=== PATIENT | male | born 1975 | race Caucasian/White ===

== ENCOUNTER → 2021-02-20 19:16 | Outpatient (CLI) | payer MEDICAID, SELFPAY | PROVIDERS: Visit Provider Nurse Practitioner Family | DX: U07.1 COVID-19 (principal) | CPT/HCPCS: C9803; U0003; U0005 ==

== ENCOUNTER → 2021-04-13 15:00 | Outpatient (CLI) | payer BC, MEDICAID, SELFPAY ==
--- NOTE | 2021-04-13 15:07 | XR_ITS ---
PROCEDURE: XR SHOULDER LT MIN 2V CLINICAL INDICATION: LT ANTERIOR SHOULDER PAIN COMPARISON: No exams were available for comparison FINDINGS: No fracture or dislocation. No lytic or blastic change. There is normal mineralization. Minimal hypertrophic change along the inferior aspect of the glenoid which may indicate mild osteoarthritic change. Other findings:None. IMPRESSION: Minimal osteoarthritic change otherwise negative Dictated by: Vinny Cota MD 04/13/2021 15:51 Vinny Cota MD in [place] 04/13/2021 15:51
--- NOTE | 2021-04-13 15:07 | XR_ITS ---
PROCEDURE: XR FEMUR LT 2V CLINICAL INDICATION: LT THIGH PAIN COMPARISON: No exams were available for comparison FINDINGS: No fracture or dislocation. No lytic or blastic change. There is normal mineralization. Mild osteoarthritic changes are present of the hip and knee. No fracture or dislocation. No lytic or blastic change. Other findings:None. 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
== END ==
PROVIDERS: PCP Family Medicine; Visit Provider Family Medicine
DX: M25.512 Pain in left shoulder (principal); M79.652 Pain in left thigh
CPT/HCPCS: 73030; 73552

== ENCOUNTER → 2021-06-30 16:09 | Outpatient (CLI) | payer BC, SELFPAY ==
--- NOTE | 2021-06-30 16:16 | XR_ITS ---
PROCEDURE INFORMATION: Exam: XR Cervical Spine Exam date and time: 06/30/2021 4:16 PM Age: 46 years old Clinical indication: Pain; Cervicalgia; Additional info: Left arm weekness, cervical disc disorder at c4-c5 level TECHNIQUE: Imaging protocol: XR of the cervical spine. Views: 4 or 5 views. COMPARISON: No relevant prior studies available. FINDINGS: Bones/joints: Reversal of normal cervical lordotic curvature which is likely on the basis of patient head position at the time of imaging. There is anterior osteophyte formation noted at C2-C3, C5-C6, and C6-C7. Mild intervertebral disc space narrowing at C5-C6 and C6-C7. Mild hypertrophic changes and narrowing between the anterior arch of C1 and the dens of C2. The spinolaminar line is intact. Exit foramina appear patent throughout the cervical spine. Soft tissues: Unremarkable. There is benign calcification of nuchal ligament posterior to C5 and C6. IMPRESSION: Osteoarthritis of the cervical spine. No evidence of acute fracture or malalignment.
== END ==
PROVIDERS: PCP Family Medicine; Visit Provider Family Medicine
DX: M50.021 Cervical disc disorder at C4-C5 level with myelopathy (principal); R29.898 Other symptoms and signs involving the musculoskeletal system
CPT/HCPCS: 72050

== ENCOUNTER → 2021-07-06 14:44 | Outpatient (CLI) | payer BC, SELFPAY ==
--- NOTE | 2021-07-06 14:45 | MR_ITS ---
FINAL REPORT CLINICAL HISTORY: LEFT ARM WEAKNESS, CERVICAL DISC DISORDER. left shoulder and neck pain. numbness in fingers. symptoms x9days. no injury. FINDINGS: Multiplanar MR imaging of the cervical spine was performed without contrast. On the sagittal T2-weighted images, disc degeneration is seen throughout. There is no evidence of fracture. There is straightening of the normal cervical curvature which could be due to positioning or muscle spasm. The vertebral alignment is normal. The cervical spinal cord has an unremarkable appearance without evidence of mass, edema or syrinx. The cervicomedullary junction is normal. C2-3: There is a small right paracentral disc protrusion. C3-4: An annular bulge is present. A central disc protrusion indents the thecal sac. There is mild central canal stenosis with an AP thecal sac diameter of 8 mm. There is mild right and severe left neural foraminal narrowing. C4-5: An annular bulge is present. A central disc protrusion causes cord contouring and results in moderate central canal stenosis with an AP thecal sac diameter of 6 mm. There is severe bilateral neural foraminal narrowing. C5-6: There is a disc osteophyte complex with a left foraminal disc protrusion. There is mild central canal stenosis with an AP thecal sac diameter of 7 mm. There is mild right and severe left neural foraminal narrowing. C6-7: There is a disc osteophyte complex. A large central disc protrusion causes cord contouring. There is moderate central canal stenosis with an AP thecal sac diameter of 5 mm. C7-T1: There is an annular bulge with a central disc protrusion. There is mild central canal stenosis with an AP thecal sac diameter of 8 mm. There is moderate bilateral neural foraminal narrowing. IMPRESSION: Disc protrusions at all levels causing cord contouring, central canal stenosis and neural foraminal narrowing as described. Reviewed, Interpreted and Dictated by Vasu Marie III, MD Transcribed by Brad Cai Authenticated by Vasu Marie III, MD on 07/06/2021 04:54:17 PM [facility]
== END ==
PROVIDERS: PCP Family Medicine; Visit Provider Family Medicine
DX: M50.021 Cervical disc disorder at C4-C5 level with myelopathy (principal); R29.898 Other symptoms and signs involving the musculoskeletal system
CPT/HCPCS: 72141; 76376

== ENCOUNTER → 2021-07-20 13:48 | Outpatient (CLI) | payer BC, SELFPAY | PROVIDERS: PCP Family Medicine; Visit Provider Nurse Practitioner | DX: Z20.822 Contact with and (suspected) exposure to COVID-19 (principal) | CPT/HCPCS: C9803; U0003; U0005 ==

== ENCOUNTER 2021-11-04 14:23 | Emergency (ER) | payer BC, SELFPAY ==
[2021-11-04 14:30] VITALS: BP 123/74; PULSE 79; RESP 19; TEMP 36.7; O2SAT 97; BMI 30.7
--- NOTE | 2021-11-04 14:52 | HMH.EDUTC ---
[facility] [place] Clinical Impression: Viral syndrome Disposition: Home, Self-Care Condition on Discharge: Good Instructions: DI for Viral Syndrome, DI for COVID-19 (Suspected or Confirmed ), Preventing the Spread of Coronavirus Discharge Instructions Additional Instructions: *Monitor Temp, Over the counter Motrin or Tylenol as directed/as needed Tylenol every 4 hours and Motrin every 6 hours (as long as your family doctor has told you that you can take it) for fever or pain. and straight to ER if unable to lower temp less than 101.0 after medication given *Warm salt water gargles may help to soothe the throat *Throat Lozenges *Warm fluids like tea with honey may help to soothe the throat *Sleep elevated *Humidifier/Vaporizer Follow up IMMEDIATELY for new or worsening symptoms or no Noticeable improvement over the next 48-72 hours. 911 for difficulty breathing or swallowing You were tested for today for COVID19 your test result should be back in the next 24-48 hours, you results should be available on the [facility] My Health Portal you can view them there Make sure to take your Vitamins Vit. C Vit D and Zinc if you can take them Referrals: Timothy Hendrickson MD [Primary Care Provider] - Forms: Work/School Release Medical Decision Making - Rober Inquiry Pt receiving controlled substance: No Rober was queried for this patient: No Vital Signs: 11/04/21 14:30 Temperature 98.1 F Temperature Source Oral Pulse Rate [Left Brachial] 79 Respiratory Rate 19 Blood Pressure [Right Arm] 123/74 Blood Pressure Mean [Right Arm] 90 Blood Pressure Source [Right Arm] Automatic Cuff Blood Pressure Position [Right Arm] Sitting 02 Sat by Pulse Oximetry 97 Oxygen Delivery Method Room Air Orders (Tests/Meds): ORDERS Category Date Time Status Covid-19 Nasal PCR ([facility]) Routine Lab 11/04/21 14:30 Re[place] [facility] [place] - General Stated complaint: covid test Time Seen by Provider: 11/04/21 14:52 Mode of Arrival: Ambulatory Source of Information: Patient Limitations: No Limitations Description of Symptoms (Recalled from Triage Doc. by RN): PATIENT C/O COUGH, CONGESTION AND FEVER. HE REPORTS A POSITIVE AT HOME COVID TEST. REQUESTING PCR COVID TEST. HEENT Symptoms (Recalled from RN notes): Yes Resp Symptoms (Recalled from RN notes): Yes Skin Symptoms (Recalled from RN notes): No MS Symptoms (Recalled from RN notes): No Functional Status (Recalled from RN notes): WNL - History of Present Illness Provider Complaint: Patient states that he has been having fever, cough and congestion since getting home from vacation States that he took 2 home COVID test and they was positive States that he came in to get tested to see if the test here was positive too - Related Data Home Medications Medication Instructions Recorded Confirmed gemfibroziL [Lopid 600mg Tablet] 600 mg PO DAILY 03/19/18 02/20/21 lisinopriL [Lisinopril 10mg Tab] 10 mg PO DAILY 03/19/18 02/20/21 Allergies Allergy/AdvReac Type Severity Reaction Status Date / Time No Known Allergies Allergy Verified 02/20/21 17:42 - Worker's Comp Is this a Worker's Comp case?: No [facility] History - Hepatitis A Screen Attestation statement:: This patient has been screened for Hepatitis A risk factors. I have reviewed the patient's past medical history: Yes Medical History: Reports:: Hyperlipidemia, Hypertension Denies:: Diabetes Mellitus Type 2 Other Surgeries: Yes: No Previous Surgery - Social History Smoking Status: Never smoker Alcohol Intake: never Occupational Status: employed ROS Obtained: Yes All systems reviewed & no additional complaints, Yes Systems reviewed as appropriate & no additional complaints - Constitutional Constitutional: Reports system reviewed and no additional complaints, except as docu, Reports body ache, Reports chills, Reports fever(s) - ENT Ears, Nose, Mouth, and Throat: Reports system reviewed and no additional complaints, except
[2021-11-04 14:55] VITALS: BP 123/74; PULSE 79; RESP 19; TEMP 36.7; O2SAT 97
== END 2021-11-04 15:00 | disposition home or self-care (01) ==
PROVIDERS: Emergency Provider Nurse Practitioner; PCP Family Medicine
DX: U07.1 COVID-19 (principal); R05.9 Cough, unspecified; R09.89 Other specified symptoms and signs involving the circulatory and respiratory systems; R50.9 Fever, unspecified
CPT/HCPCS: 99212; C9803; G0463; U0003; U0005

== ENCOUNTER 2023-02-10 17:42 | Emergency (ER) | payer BC, SELFPAY ==
[2023-02-10 17:42] VITALS: BP 121/74; PULSE 75; RESP 16; TEMP 36.7; O2SAT 99; BMI 31.4
--- NOTE | 2023-02-10 19:18 | EXP.UTC ---
Discharge Plan Disposition Patient Disposition: Home, Self-Care Condition: Good Prescriptions Prescriptions: New prednisone 5 mg tablets,dose pack See Rx Instructions .ROUTE .COMPLEX Qty: 21 0RF Rx Instructions: take as directed on package instructions No Action gemfibrozil 600 MG tablet 600 mg PO DAILY lisinopril 10 MG tablet 10 mg PO DAILY Referrals Follow up/Referrals: Deidre Romero MD [Primary Care Provider] - See instructions Activity Restrictions/Add. Instructions Additional Instructions/Restrictions: Oatmeal baths may help with itching and drying of rash Follow up with your Family Doctor if needed Calamine lotion may help with itching Return if needed Start oral steriods tomorrow Clinical Impressions Clinical Impression: Contact dermatitis due to poison vine Instructions Patient Instructions: Summertime Rashes: Poison [place], [place], and [place], Poisonous Plants: [place], [place], and [place]: Beware the Oils Discharge [place]ario [place] [facility] [place] General Stated complaint: rash Mode of Arrival: Ambulatory Source of Information: Patient Limitations: No Limitations Time Seen by Provider: 02/10/23 19:18 Description of Symptoms (Recalled from Triage Doc. by RN): Patient reports possible poison oak rash since Monday. HEENT Symptoms (Recalled from RN notes): No Resp Symptoms (Recalled from RN notes): No Skin Symptoms (Recalled from RN notes): Yes MS Symptoms (Recalled from RN notes): No Functional Status (Recalled from RN notes): wnl History of Present Illness Provider Complaint: Patient states that they had a fire pit the other day and he had some fresh cut wood there and he reached and grabbed some and noticed it had a vine wrapped around it and then he started breaking out and having swelling around his eyes States that he has been taking benadryl and it has helped some but today the rash was worse so he came in to get checked Related Data Home Medications Medication Instructions Recorded Confirmed gemfibrozil 600 mg tablet 600 mg PO DAILY Cholesterol 03/19/18 02/20/21 lisinopril 10 mg tablet 10 mg PO DAILY HTN 03/19/18 02/20/21 Previous Rx's Medication Instructions Recorded prednisone 5 mg tablets in a dose See Rx Instructions PO .COMPLEX 02/10/23 pack #21 tabs Allergies Allergy/AdvReac Type Severity Reaction Status Date / Time No Known Allergies Allergy Verified 02/20/21 17:42 Worker's Comp Is this a Worker's Comp case?: No [facility] Disclaimer: The information contained in this section may have been updated after the patient was seen, as this information can be updated by other users. Social History Smoking Status: Never smoker alcohol intake: never current occupational status: employed Travel in the last 8 weeks: None ROS Obtained: Yes All systems reviewed & no additional complaints except as documented and Yes Systems reviewed as appropriate & no additional complaints except as documented Constitutional Constitutional: Reports system reviewed and no additional complaints, except as documented and Reports as per HPI Cardiovascular Cardiovascular: Reports system reviewed and no additional complaints, except as documented and Reports as per HPI Respiratory Respiratory: Reports system reviewed and no additional complaints, except as documented and Reports as per HPI Gastrointestinal Gastrointestingal: Reports system reviewed and no additional complaints, except as documented and as per HPI Integumentary/Breasts Skin/Breast: Reports system reviewed and no additional complaints, except as documented, Reports as per HPI, Reports pruritus and Reports rash Physical Exam General General appearance: alert and in no apparent distress Respiratory Respiratory exam: Present normal lung sounds bilaterally; Absent respiratory distress or wheezes Cardiovascular Cardiovascular exam: Present regular rate, normal rhythm and normal heart sounds Abdominal Exam
[2023-02-10 20:04] VITALS: BP 121/74; PULSE 75; RESP 16; TEMP 36.7; O2SAT 99
== END 2023-02-10 20:05 | disposition home or self-care (01) ==
PROVIDERS: Emergency Provider Nurse Practitioner; PCP Family Medicine
DX: L23.7 Allergic contact dermatitis due to plants, except food (principal); W60.XXXA Contact with nonvenomous plant thorns and spines and sharp leaves, initial encounter
CPT/HCPCS: 96372; 99212; 99214; G0463